=== PATIENT | male | born 1990 | race Caucasian/White ===

== ENCOUNTER 2017-02-24 19:57 | Emergency (ER) | payer MEDICAID ==
[~2017-02-24] VITALS: Ht 182.9 cm; Wt 120.0 kg
[2017-02-24 20:00] VITALS: BP 134/87
== END 2017-02-24 21:40 | disposition left against medical advice (07) ==
LOC: EMS 20:00
DX: M54.5 Low back pain (principal); M79.605 Pain in left leg; F17.210 Nicotine dependence, cigarettes, uncomplicated; F12.90 Cannabis use, unspecified, uncomplicated; Z53.21 Procedure and treatment not carried out due to patient leaving prior to being seen by health care provider